=== PATIENT | male | born 1985 | race Caucasian/White ===

== ENCOUNTER 2019-03-19 14:43 | Day surgery (SDC) | payer OTHER ==
[~2019-03-19 14:43] MED LIST: CEFAZOLIN 1 GM/D5W RTU 1 GM/50 ML RTUPB IV PRN; DEXAMETHASONE SOD PHOSPHATE INJ 4 MG/1 ML VIAL ONE; FENTANYL CITRATE INJ/PF 100 MCG/2 ML AMPUL ONE; MIDAZOLAM 2 MG/2 ML INJ ONE; ONDANSETRON HCL INJ/PF 4 MG/2 ML SDV ONE; PROPOFOL INJ 200 MG/20 ML VIAL IV ONE; SUCCINYLCHOLINE CHLORIDE INJ 200 MG/10 ML VIAL ONE
[2019-03-19 15:41] LABS: ABSOLUTE EOSINOPHILS # (AUTO) 0.1 10^3/uL (0.0-0.6); ABSOLUTE LYMPHOCYTES (AUTO) 1.5 10^3/uL (0.5-4.7); ABSOLUTE MONOCYTES (AUTO) 0.7 10^3/uL (0.1-1.4); ABSOLUTE NEUT (AUTO) 4.3 10^3/uL (1.7-8.2); BASOPHILS % (AUTO) 0.5 % (0-2); HEMATOCRIT 46.3 % (37.9-51.0); HEMOGLOBIN 16.1 g/dL (13.5-17.0); LYMPHOCYTES % (AUTO) 22.3 % (13-45); MEAN CORPUSCULAR HEMOGLOBIN 29.7 pg (27.0-33.4); MEAN CORPUSCULAR HGB CONC 34.8 g/dL (32.0-36.0); MEAN CORPUSCULAR VOLUME 85 fl (80-97); MONOCYTES % (AUTO) 10.8 % (3-13); PLATELET COUNT 211 10^3/uL (150-450); RED BLOOD COUNT 5.43 10^6/uL (4.35-5.55); RED CELL DISTRIBUTION WIDTH 13.4 % (11.5-14.0); SEGMENTED NEUTROPHILS % (AUTO) 64.4 % (42-78); TOTAL CELLS COUNTED % (AUTO) 100 %; WHITE BLOOD COUNT 6.7 10^3/uL (4.0-10.5)
--- NOTE | 2019-03-19 15:44 | RADIOLOGY REPORT (SQ) ---
EXAM DESCRIPTION: CHEST SINGLE VIEW COMPLETED DATE/TIME: 03/19/2019 3:26 pm REASON FOR STUDY: PREOP COMPARISON: None. NUMBER OF VIEWS: One view. TECHNIQUE: Single frontal radiographic view of the chest acquired. LIMITATIONS: None. FINDINGS: LUNGS AND PLEURA: No opacities, masses or pneumothorax. No pleural effusion. MEDIASTINUM AND HILAR STRUCTURES: No masses. Contour normal. HEART AND VASCULAR STRUCTURES: Heart normal in size. Normal vasculature. BONES: No acute findings. HARDWARE: None in the chest. OTHER: No other significant finding. IMPRESSION: NO SIGNIFICANT RADIOGRAPHIC FINDING IN THE CHEST. TECHNICAL DOCUMENTATION: JOB ID: [id number] [employer]- All Rights Reserved Reading location - IP/workstation name: [email or web address]
[2019-03-19 16:00] LABS: ANION GAP 7 (5-19); BLOOD UREA NITROGEN 20 mg/dL (7-20); CALCIUM 9.7 mg/dL (8.4-10.2); CARBON DIOXIDE 29 mmol/L (22-30); CHLORIDE 103 mmol/L (98-107); GLUCOSE 89 mg/dL (75-110); POTASSIUM 4.9 mmol/L (3.6-5.0)
--- NOTE | 2019-03-19 16:23 | EKG REPORT ---
SEVERITY:- NORMAL ECG - SINUS RHYTHM : Confirmed by: Alice Medellin MD 19-Mar-2019 16:22:46
[2019-03-19] MEDS ORDERED: MIDAZOLAM 2 MG/2 ML INJ IV ONE (16:45)
[2019-03-19] MEDS ORDERED: RINGERS SOLUTION,LACTATED 1,000 ML IV ONE (16:45)
[2019-03-19] MEDS ORDERED: SCOPOLAMINE HYDROBROMIDE 1.5 MG PATCH.TD72 TD ONE (16:45)
[2019-03-19] MEDS ORDERED: MIDAZOLAM 2 MG/2 ML INJ ONE (16:54)
[2019-03-19] MEDS ORDERED: CEFAZOLIN 1 GM/D5W RTU 1 GM/50 ML RTUPB IV ONE (16:54)
[2019-03-19] MEDS ORDERED: SCOPOLAMINE HYDROBROMIDE 1.5 MG PATCH.TD72 ONE (16:54)
[2019-03-19] MEDS ORDERED: CEFAZOLIN INJ 1 GM VIAL ONE (18:50)
[2019-03-19] MEDS ORDERED: MEPERIDINE HCL/PF INJ 25 MG/1 ML DISP.SYRIN IV PRN (19:32)
[2019-03-19] MEDS ORDERED: PROMETHAZINE HCL INJ 25 MG/1 ML VIAL IV PRN ×2 (19:32)
[2019-03-19] MEDS ORDERED: FENTANYL CITRATE INJ/PF 100 MCG/2 ML AMPUL IV PRN ×3 (19:32)
[2019-03-19] MEDS ORDERED: ONDANSETRON HCL INJ/PF 4 MG/2 ML SDV IV PRN ×2 (19:32→19:57)
[2019-03-19] MEDS ORDERED: MORPHINE SULFATE 10 MG/ML INJ IV PRN ×2 (19:32→19:57)
[2019-03-19] MEDS ORDERED: DIPHENHYDRAMINE HCL 50 MG/ML VIAL IV PRN (19:32)
--- NOTE | 2019-03-19 19:57 | Operative Report ---
Operative Report DATE OF SURGERY: 03/19/19 PREOPERATIVE DIAGNOSIS: Left index finger extensor tendon laceration, right mid dle finger extensor tendon laceration POSTOPERATIVE DIAGNOSIS: Same plus fracture radial condyle left index finger proximal phalanx, fracture ulnar condyle right middle finger OPERATION: 1. Left index finger Zone 2/3/4 extensor tendon repair. 2. Right middle finger Zone central slip extensor tendon repair. 3. Irrigation open fracture left index finger proximal phalanx, right middle finger proximal phalanx SURGEON: EB MCKENNA ANESTHESIA: GA COMPLICATIONS: None ESTIMATED BLOOD LOSS: Minimal PROCEDURE: Indication for above procedure: 33-year-old male who sustained table saw injury to his left and right hand. Patient was seen at outside emergency room where the wounds were irrigated and loosely closed. He was sent to outside orthopedist who then referred him for further evaluation. On examination findings of extensor tendon involvement of the index on the left and ring finger on the right. At that point we discussed treatment options decision was made to proceed with operative intervention. Procedure In Detail: Patient was seen and evaluated in the preoperative holding area. The upper extremity was initialized and marked. Patient received 2g of Ancef IV for bacterial prophylaxis. Patient was taken back to the operative room where transferred to the operative table and placed under general anesthesia. Once they were adequately anesthetized a nonsterile tourniquet was placed on the uppe r extremity. A surgical team debriefing was performed ensuring all instrumentation was available, the surgical procedure was discussed with possible concerns reviewed. The upper extremity was prepped with Betadine and draped in a sterile fashion. A timeout was done identifying correct patient, procedure and extremity everyone in attendance agree with this and verbalized no concerns. The left upper extremity was exsanguinated the tourniquet was inflated to 250 mmHg. Sutures were removed. The dorsal aspect of the index finger was exposed. There was evidence of small shear fracture from the dorsal radial aspect of the proximal phalanx. This area was debrided. No significant contamination was appreciated the PIP joint was debrided nonviable bone and soft tissue excised. Longitudinal laceration of the extensor tendon from just proximal to the central slip insertion along the distal phalanx involving approximately 10% distally along the terminal tendon, 25% of the central slip and 50% of the extensor tendon within zone IV. Skin edges were nonviable along the distal aspect of the middle phalanx. The extensor tendon was reapproximated with multiple [id number]-ua-[id number] 4-0 FiberWire sutures which successfully reconstructed the extensor tendon. There was no evidence of gapping with 45 degrees of PIP joint flexion. The skin was then undermined to adequately close the wound. Skin incision was closed with multiple 4-0 nylon sutures. 10 cc of 0.5% bupivacaine without epinephrine was injected for postoperative pain control. Tourniquet was then deflated. Wound was dressed with Xeroform 4 x 4's patient was placed in a radial gutter splint maintaining full extension of the DIP, PIP and MP joints. The right upper extremity was then exsanguinated and tourniquet was inflated to 250 mmHg. Sutures were removed from the small finger and middle finger. No deep involvement of the small finger was appreciated. Skin incision was extended proximally and distally centered over the PIP joint of the middle finger. None viable skin tendon and capsule was excised. Exploration demonstrated large shear fracture of the ulnar condyle involving approximately 75% of the articular surface measuring less than 1 mm. There was remaining cartilage along the volar aspect of the ulnar condyle no instability was noted on live C arm fluoroscopy. The PIP joint was then irrigated and the open fracture irrigated. There was no significant defect of the extensor mechanism tendon edges were debrided back to normal tendon at the central slip within zone 3. Once adequately debrided exten sor tendon was reapproximated with interrupted rzfnnz-ki-rzyps 4-0 FiberWire suture. At completion patient's boutonniere deformity was notably corrected. Wound was irrigated with normal saline. Skin was closed with interrupted 4-0 nylon suture. 10 cc of 0.5% bupivacaine without epinephrine is injected for postoperative pain control. Patient was then placed in a radial gutter splint maintaining full extension of the index and middle finger at the DIP, PIP and MP joints. Sponge counts, instrument counts, needle counts were correct. Patient was then awoken from anesthesia. Transferred from the operating room table to the operating room stretcher. There was no intraoperative complications patient tolerated procedure well stable to PACU. Postoperative plan: Patient will begin occupational therapy 5 days postoperatively and be fitted for a thermoplastic splint of the left index and right middle finger. MP joints may be free immobilized PIP joint in full extension with DIP joint in slight flexion of approximately 30 degrees. Patient may begin DIP joint range of motion 0 degrees to 30 degrees for the first 2 weeks then progress as per zone III extensor tendon repair of both left index and right middle finger. If patient develops extensor lag would recommend transitioning to static splint.
--- NOTE | 2019-03-19 19:57 | Discharge Summary ---
Discharge Summary (SDC) - Discharge Final Diagnosis: Extensor tendon laceration left index finger, right ring finger Date of Surgery: 03/19/19 Condition: Good Treatment or Instructions: Schedule Follow Up w/ Dr. Efrain Hernandez @ [facility] to be seen in 10-14 days or as scheduled [place]: [place]: [place]: Ice and elevate Keep splint clean/dry/intact, do not remove. If your fingers become numb please unwrap the Jarrod wrap but leave the splint in place, if the sensation does not return within 30 minutes please return to the emergency department. Please use ibuprofen (Motrin or Advil) 600-800 mg every 8 hours as needed for pain or fever DO NOT TAKE w/ TORADOL may use once TORADOL complete. You may also use acetaminophen (Tylenol) 1000 mg every 4-6 hours as needed for pain or fever. Please be aware that many medications contain acetaminophen, do not exceed a total of 1000 mg of acetaminophen every 6 hours. If ibuprofen and acetaminophen are not sufficient for your pain you may take the Percocet/[place]. Please be aware that the Percocet/[place] does contain Tylenol. Stool softener of choice when on pain medication. USE OF [id number] IBUPROFEN: Ibuprofen (Advil, Nuprin, Medipren, Motrin IB) is a medication for fever and pain control. In addition, it has anti- inflammatory effects which may be beneficial, especially in the treatment of injuries. It's best to take ibuprofen with food. Persons with ulcer disease or allergy to aspirin should notify their physician of this before taking ibuprofen. Ibuprofen can be given every four to six hours, for a total of four doses daily. Age Pain or fever dose Antiinflammatory dose 6-8 yr 200 mg (1 tab) 200 mg (1 tab) 9-11 yr 200 mg (1 tab) 200-400 mg (1-2 tab) 11-14 yr 200-400 mg (1-2 tab) 400 mg (2 tab) 15-adult 400 mg (2 tab) 600 mg (3 tab) ORAL NARCOTIC MEDICATION: You have been given a prescription for pain control. This medication is a narcotic. It's best taken with food, as nausea can result if taken on an empty stomach. Don't operate machinery or drive within six hours of taking this medication. Do not combine this medicine with alcohol, or with any medication which can cause sedation (such as cold tablets or sleeping pills) unless you get permission from the physician. Narcotics tend to cause constipation. If possible, drink plenty of fluids and eat a diet high in fiber and fruits. Please be aware that prescription narcotics also have the potential for abuse. People become addicted to these medications because of the general sense of wellbeing that they induce. This feeling along with a significant reduction in tension, anxiety, and aggression provides a stimulating seductive quality to these drugs. Once your pain is under control, we encourage you to discard your unused narcotics. Prescriptions: Oxycodone HCl/Acetaminophen [Percocet 5-325 mg Tablet] 1 tab PO Q6 PRN #25 tab PRN Reason: Referrals: OMI MUNOZ DO [Primary Care Provider] - Discharge Diet: As Tolerated Respiratory Treatments at Home: Deep Breathing/Coughing, Incentive Spirometer Discharge Activity: No Lifting Over 10 Pounds, No Lifting/Push/Pulling Report the Following to Your Physician Immediately: Fever over 101 Degrees, Unusual Bleeding, Redness, Swelling, Warmth, Increased Soreness
[2019-03-19] MEDS ORDERED: PROMETHAZINE HCL INJ 25 MG/1 ML VIAL ONE (20:12)
[2019-03-19] MEDS ORDERED: KETOROLAC TROMETHAMINE INJ/PF 30 MG/1 ML SDV ONE (20:12)
[2019-03-19] MEDS ORDERED: ACETAMINOPHEN 1,000 MG/100 ML RTUPB IV ONE (20:13)
[2019-03-19] MEDS ORDERED: KETOROLAC TROMETHAMINE INJ/PF 30 MG/1 ML SDV INJ ONE (20:17)
[2019-03-19] MEDS ORDERED: DIPHENHYDRAMINE HCL 50 MG/ML VIAL ONE (20:37)
[2019-03-19] MEDS ORDERED: BUPIVACAINE HCL 0.5 % INJ/PF 30 ML SDV ONE (21:11)
[2019-03-19 22:02] VITALS: BP 122/83
--- NOTE | 2019-03-20 13:12 | RADIOLOGY REPORT (SQ) ---
EXAM DESCRIPTION: FINGER RIGHT; NO CHG FLUORO COMPLETED DATE/TIME: 03/19/2019 7:44 pm; 03/19/2019 7:43 pm REASON FOR STUDY: TENDON REPAIR IN OR S61.211A LACERATION W/O FB OF L IDX FNGR W/O DAMAGE TO NAIL, S61.212A LACERATION W/O FB OF R MID FINGER W/O DAMAGE TO NARINDER COMPARISON: None. FLUOROSCOPY TIME: 2 seconds. 2 images saved to PACS. TECHNIQUE: Intra-operative images acquired during surgical procedure to evaluate progress. NUMBER OF IMAGES: 2 images. LIMITATIONS: None. FINDINGS: Images of the finger acquired during the procedure. IMPRESSION: IMAGE(S) OBTAINED DURING PROCEDURE. COMMENT: Quality ID [id number]: Final reports for procedures using fluoroscopy that document radiation exp osure indices, or exposure time and number of fluorographic images (if radiation exposure indices are not available) Please consult full operative report of the attending physician for description of the procedure. TECHNICAL DOCUMENTATION: JOB ID: [id number] [employer]- All Rights Reserved Reading location - IP/workstation name: [email or web address]
--- NOTE | 2019-03-20 13:12 | RADIOLOGY REPORT (SQ) ---
EXAM DESCRIPTION: FINGER RIGHT; NO CHG FLUORO COMPLETED DATE/TIME: 03/19/2019 7:44 pm; 03/19/2019 7:43 pm REASON FOR STUDY: TENDON REPAIR IN OR S61.211A LACERATION W/O FB OF L IDX FNGR W/O DAMAGE TO NAIL, S61.212A LACERATION W/O FB OF R MID FINGER W/O DAMAGE TO NARINDER COMPARISON: None. FLUOROSCOPY TIME: 2 seconds. 2 images saved to PACS. TECHNIQUE: Intra-operative images acquired during surgical procedure to evaluate progress. NUMBER OF IMAGES: 2 images. LIMITATIONS: None. FINDINGS: Images of the finger acquired during the procedure. IMPRESSION: IMAGE(S) OBTAINED DURING PROCEDURE. COMMENT: Quality ID [id number]: Final reports for procedures using fluoroscopy that document radiation exp osure indices, or exposure time and number of fluorographic images (if radiation exposure indices are not available) Please consult full operative report of the attending physician for description of the procedure. TECHNICAL DOCUMENTATION: JOB ID: [id number] [employer]- All Rights Reserved Reading location - IP/workstation name: [email or web address]
== END 2019-03-19 21:50 | disposition home or self-care (01) ==
LOC: OROUT 14:43
PROVIDERS: ATTEND Orthopaedic Surgery
DX: S66.321A Laceration of extensor muscle, fascia and tendon of left index finger at wrist and hand level, initial encounter (principal); S66.322A Laceration of extensor muscle, fascia and tendon of right middle finger at wrist and hand level, initial encounter; S61.211A Laceration without foreign body of left index finger without damage to nail, initial encounter; S61.212A Laceration without foreign body of right middle finger without damage to nail, initial encounter; W31.2XXA Contact with powered woodworking and forming machines, initial encounter; Z79.899 Other long term (current) drug therapy; Z87.891 Personal history of nicotine dependence
CPT/HCPCS: 36415; 85025; 80048; 71045; 73140; 93005; 93010; 01810; 26426; 26418; J2250; J3490; J0690 ×2; J1100; J1200; J3010; J1885; J2550; J0330; J2405; J2704; J0131